=== PATIENT | female | born 1960 | race Caucasian/White ===

== ENCOUNTER 2016-09-08 22:56 | Emergency (ER) | payer OTHER ==
[~2016-09-08] VITALS: Ht 170.2 cm; Wt 77.1 kg
[2016-09-08] MEDS ORDERED: BUSP5TAB59 (23:18)
[2016-09-08] MEDS ORDERED: SERT100T8 (23:18)
[2016-09-08] MEDS ORDERED: KETOROLAC 60 MG/2 ML VIAL IM STA (23:18)
[2016-09-08] MEDS ORDERED: KETO10TA PO (23:26)
[2016-09-08] MEDS ORDERED: CEFD300C3 PO (23:26)
--- NOTE | 2016-09-08 23:27 | ED EENT ---
History of Present Illness General Chief Complaint: Ear Problems Stated Complaint: L EAR PAIN Nursing Triage Note: Pt to ED 5 ambulatory crying and cursing. Pt demands to be seen right away and pain meds given. Pt awoke with left ear pain and continues to worsen all day. Pt from out of state visiting Source: patient, spouse Exam Limitations: no limitations History of Present Illness Time seen by provider: 23:21 Initial Comments 55-year-old female patient presents to the emergency Department with reports of ear pain beginning this AM. Reports pain worse today. States she is here visiting her who is in town working on the [employer]. Denies drainage from the ear. Denies fever, chills, headache. Denies dizziness. Location Injury Occurred: denies known injury Timing/Duration: abrupt, this morning Severity: severe Location: ear (L), throat Prearrival Treatment: no prearrival treatment Presenting Symptoms/Injuries: left ear pain Modifying Factors: Worse With Other (worse with swallowing) Associated Symptoms: No change in hearing, No cough, No drooling, No ear drainage, No facial pain/swelling, No fever, No malaise, No nasal congestion/ drainage, No poor fluid intake, No poor solids intake, No sinus infection, sore throat, No tooth pain, No voice change Allergies and Home Medications Allergies Coded Allergies: No Known Drug Allergies (Unverified , 09/08/16) Home Medications Buspirone HCl 5 Mg Tablet, #90 (Reported) Cefdinir 300 Mg Capsule, 300 MG PO BID, #20 Ref 0 Prescribed by: CANDELARIO BULLOCK on 09/08/16 2326 Ketorolac Tromethamine 10 Mg Tablet, 10 MG PO Q6H PRN for PAIN, #16 Ref 0 Prescribed by: CANDELARIO BULLOCK on 09/08/16 2326 Sertraline HCl 100 Mg Tablet, #45 (Reported) Review of Systems Constitutional: No chills, No dizziness, No fever, malaise Eyes: No Symptoms Reported Ears: See HPI, Denies Dizziness, Pain, Denies Tinnitus, Denies Bloody Discharge , Denies Clear Discharge, Denies Purulent Discharge, Denies Serosanguinous Discharge Nose: denies congestion, denies pain Mouth: no symptoms reported Throat: pain, denies swelling, denies neck stiffness, denies hoarse, denies aphonia, denies muffled, painful swallowing, denies difficulty with fluids Respiratory: no symptoms reported Cardiovascular: no symptoms reported Gastrointestinal: no symptoms reported Musculoskeletal: no symptoms reported Skin: no symptoms reported Neurological: No Symptoms Reported All Other Systems Reviewed Negative Unless Noted: Yes (Negative excepted noted.) Past Ankdtdj-Wxrlsb-Elhhbt Hx Patient Social History Alcohol Use: Occasionally Uses Recreational Drug Use: No Smoking Status: Current Everyday Smoker Type Used: Cigarettes Recent Foreign Travel: No Contact w/Someone Who Travel: No Recent Infectious Disease Expo: No Recent Hopitalizations: No Seasonal Allergies Seasonal Allergies: No Surgeries HX Surgeries: No Respiratory Hx Respiratory Disorders: No Cardiovascular Hx Cardiac Disorders: No Neurological Hx Neurological Disorders: No Genitourinary Hx Genitourinary Disorders: No Gastrointestinal Hx Gastrointestinal Disorders: No Musculoskeletal Hx Musculoskeletal Disorders: No HEENT HX ENT Disorders: No Psychosocial Hx Psychiatric Problems: Yes (On Zoloft and Buspar) Behavioral Health Disorders: Anxiety Reviewed Nursing Assessment Reviewed/Agree w Nursing PMH: Yes Family Medical History Significant Family History: No Pertinent Family Hx Physical Exam Vital Signs Eyes: bilateral eye EOMI, bilateral eye PERRL, bilateral eye normal inspection Ears: right ear TM normal, left ear TM dull, left ear TM red, bilateral ear auricle normal, bilateral ear canal normal Nose: normal inspection Mouth/Throat: normal mouth inspection, No excessive drooling, No tonsillar exudate, No tonsillar swelling, No trismus, No uvula swelling, other ((+) pharyngeal erythema) Neck: non-tender, full range of motion, supple, normal inspection Cardiovascular: regular rate, rhythm, no murmur Respiratory: lungs clear, normal breath sounds, no respiratory distress Neurologic/Psychiatric: alert, normal mood/affect, oriented x 3 Skin: normal color, warm/dry Progress/Results/Core Measures Results/Orders My Orders Vital Signs/I&O Blood Pressure Mean: 116 Departure Impression Impression: Primary Impression: Otitis media Qualified Codes: H65.02 - Acute serous otitis media, left ear Additional Impression: Pharyngitis, acute Qualified Codes: J02.9 - Acute pharyngitis, unspecified Disposition: 01 HOME, SELF-CARE Condition: Improved Departure-Patient Inst. Decision time for Depature: 23:22 Referrals: NO,LOCAL PHYSICIAN (PCP/Family) Primary Care Physician Patient Instructions: Ear Infections (Otitis Media) (DC) Add. Discharge Instructions: All discharge instructions reviewed with patient and/or family. Voiced understanding. Medications as instructed. Tylenol Extra Strength [id number] as directed for pain. Afrin nasal spray 2 sprays each nostril twice daily 3 days. Warm compresses or ice packs as needed for pain. Throat sprays and lozenges [id number] as directed for throat pain if needed. Follow-up with your family practitioner for recheck upon returning home if no improvement in symptoms. Return to the emergency department for worsened symptoms or any other concerns. Scripts Ketorolac Tromethamine (Ketorolac Tromethamine) 10 Mg Tablet 10 MG PO Q6H Y for PAIN, #16 TAB 0 Refills Prov: CANDELARIO BULLOCK 09/08/16 Cefdinir (Cefdinir) 300 Mg Capsule 300 MG PO BID, #20 CAP 0 Refills Prov: CANDELARIO BULLOCK 09/08/16 CANDELARIO BULLOCK Sep 08, 2016 23:27
[2016-09-08] MEDS ORDERED: cefTRIAXone 1 GM (ROCEPHIN) VIAL IM ONE (23:30)
[2016-09-08] MEDS ORDERED: APAP 300 MG/CODEINE 30 MG (TYLENOL #3) TAB PO PRN (23:30)
[2016-09-08] MEDS ORDERED: LIDOCAINE 1% INJ 20 ML (XYLOCAINE) VIAL INJ ONE (23:30)
[2016-09-08] MEDS ORDERED: OXYMETAZOLINE (AFRIN) 0.05% NA 15 ML BTL ONE (23:33)
[2016-09-08 23:59] VITALS: BP 142/103
[2016-09-09] MEDS ORDERED: RX-ACETAMINOPHEN/CODEINE TAB PPK #4 PO SCH (00:15)
[2016-09-09] MEDS ORDERED: OXYMETAZOLINE (AFRIN) 0.05% NA 15 ML BTL SCH (09:00)
== END 2016-09-08 23:59 | disposition home or self-care (01) ==
LOC: ER 22:58
DX: H66.92 Otitis media, unspecified, left ear (principal); J02.9 Acute pharyngitis, unspecified; F17.210 Nicotine dependence, cigarettes, uncomplicated
CPT/HCPCS: 96372; 99283